=== PATIENT | female | born 1965 | race Two or more races ===

== ENCOUNTER → 2016-11-29 | Outpatient (CLI) | payer BC ==
[~2016-11-29] MED LIST: ASPI-1160 PO; ASPI-986 PO; CLOP75TA2 PO; CLOP75TA33 PO; COR25 PO; ISOS30TA PO; ISOS30TA6 PO; LIP40 PO; LISI-186 PO; SIMV40TA5 PO
[2016-11-29 13:54] LABS: CLARITY URINE CLOUDY (CLEAR); COLOR URINE YELLOW (YELLOW); GLUCOSE URINE NEGATIVE (NEGATIVE); KETONES URINE TRACE (NEGATIVE); LEUKOCYTE ESTERASE URINE 3+ (NEGATIVE); NITRITE URINE NEGATIVE (NEGATIVE); OCCULT BLOOD URINE NEGATIVE (NEGATIVE); PH URINE 7.5 (4.5-8.0); PROTEIN URINE NEGATIVE (NEGATIVE); SPECIFIC GRAVITY URINE 1.022 (1.005-1.030)
[2016-11-29 13:55] LABS: EOSINOPHILS % 6.2 % (0.0-5.0); HEMATOCRIT. 39.9 % (36.0-48.0); HEMOGLOBIN. 13.4 g/dL (12.0-16.0); LYMPHOCYTES % 37.4 % (20.0-50.0); MEAN CORPUSCULAR HEMOGLOBIN 29.9 pg (28.0-32.0); MEAN CORPUSCULAR VOLUME 88.7 fL (81.0-99.0); MEAN PLATELET VOLUME 8.4 fl (7.4-10.4); MONOCYTES % 5.6 % (2.0-8.0); NEUTROPHILS % 49.8 % (40.0-76.0); PLATELET 167 x1000/uL (130-400)
[2016-11-29 14:17] LABS: CARBON DIOXIDE 32 mEq/L (21-32); CHLORIDE 105 mEq/L (98-107)
[2016-11-29 14:30] LABS: HDL CHOLESTEROL 71 mg/dL (40-59); LDL CHOLESTEROL 155 mg/dL (5-100)
== END | disposition home or self-care (01) ==
LOC: LAB 13:25
PROVIDERS: ATTEND Internal Medicine
DX: I25.10 Atherosclerotic heart disease of native coronary artery without angina pectoris (principal); I10 Essential (primary) hypertension; E78.5 Hyperlipidemia, unspecified; R53.83 Other fatigue; R53.1 Weakness
CPT/HCPCS: 36415; 80053; 80061; 81001; 82306; 83036; 84443; 85025

== ENCOUNTER → 2017-01-25 | Outpatient (CLI) | payer BC ==
[2017-01-25 11:24] LABS: CLARITY URINE CLEAR (CLEAR); COLOR URINE YELLOW (YELLOW); GLUCOSE URINE NEGATIVE (NEGATIVE); KETONES URINE NEGATIVE (NEGATIVE); LEUKOCYTE ESTERASE URINE 2+ (NEGATIVE); NITRITE URINE NEGATIVE (NEGATIVE); OCCULT BLOOD URINE NEGATIVE (NEGATIVE); PROTEIN URINE NEGATIVE (NEGATIVE); SPECIFIC GRAVITY URINE 1.021 (1.005-1.030); UROBILINOGEN URINE 0.2 E.U./dL (0.2-1.0)
[2017-01-25 11:59] LABS: CARBON DIOXIDE 29 mEq/L (21-32); CHLORIDE 106 mEq/L (98-107); HDL CHOLESTEROL 65 mg/dL (40-59); LDL CHOLESTEROL 128 mg/dL (5-100)
== END | disposition home or self-care (01) ==
LOC: LAB 10:55
PROVIDERS: ATTEND Internal Medicine
DX: I10 Essential (primary) hypertension (principal); I25.10 Atherosclerotic heart disease of native coronary artery without angina pectoris; N39.0 Urinary tract infection, site not specified
CPT/HCPCS: 36415; 80048; 80061; 81001; 83036; 85651; 87086

== ENCOUNTER 2017-03-11 20:55 | Inpatient (IN) | payer BC, MEDICAID ==
[~2017-03-11] VITALS: Ht 162.6 cm; Wt 66.7 kg
[~2017-03-11 20:55] MED LIST changes: +CLOP75TA16 PO; -CLOP75TA2 PO
[2017-03-11] MEDS ORDERED: ASPIRIN 81MG TABLET PO ONE (22:30)
[2017-03-11] MEDS: NITROGLYCERIN 0.4MG TABLET SL SL PRN ×2 (22:33→22:42)
[2017-03-11 23:00] LABS: BASOPHILS % 0.7 % (0.0-2.0); EOSINOPHILS % 8.3 % (0.0-5.0); HEMATOCRIT. 36.7 % (36.0-48.0); HEMOGLOBIN. 12.1 g/dL (12.0-16.0); LYMPHOCYTES % 36.2 % (20.0-50.0); MEAN CORPUSCULAR HEMOGLOBIN 29.3 pg (28.0-32.0); MEAN CORPUSCULAR VOLUME 88.6 fL (81.0-99.0); MEAN PLATELET VOLUME 9.7 fl (7.4-10.4); MONOCYTES % 5.9 % (2.0-8.0); NEUTROPHILS % 48.9 % (40.0-76.0); PLATELET 163 x1000/uL (130-400); RED BLOOD CELL COUNT 4.14 mill/uL (4.2-5.4); RED CELL DISTRIBUTION WIDTH 14.3 % (11.6-14.6)
[2017-03-11 23:07] LABS: INR 1.1
[2017-03-11 23:17] LABS: CARBON DIOXIDE 31 mEq/L (21-32); CHLORIDE 107 mEq/L (98-107); TROPONIN I < 0.02 ng/mL (0.00-0.04)
[2017-03-12] MEDS ORDERED: SODIUM CHLORIDE 0.9% 1,000 ML IV SCH (00:24)
[2017-03-12] MEDS ORDERED: IBUPROFEN 600MG TABLET PO PRN (00:30)
[2017-03-12] MEDS ORDERED: ACETAMINOPHEN 325MG TABLET PO PRN ×2 (00:30→03:30)
[2017-03-12 02:20] VITALS: BP 131/77
[2017-03-12] MEDS ORDERED: NITROGLYCERIN 0.4MG TABLET SL SL PRN (03:30)
[2017-03-12] MEDS ORDERED: LORAZEPAM 0.5MG TABLET PO PRN (03:30)
[2017-03-12] MEDS ORDERED: MAGNESIUM/ALUMINUM HYDROXIDE/SIMETHICONE 30ML UDC PO PRN (03:30)
[2017-03-12] MEDS ORDERED: ONDANSETRON HCL 4MG/2ML VIAL IV PRN (03:30)
[2017-03-12] MEDS ORDERED: IPRATROPIUM/ALBUTEROL 0.5-3(2.5)MG/3ML NEB INH PRN (03:30)
[2017-03-12 04:00] VITALS: BP 130/70
[2017-03-12] MEDS ORDERED: MORPHINE SULFATE 4 MG/ML CPJ (NOT FOR IM USE) IV PRN (04:45)
[2017-03-12 08:00] VITALS: BP 128/80
[2017-03-12] MEDS: ENOXAPARIN 40MG/0.4ML SYR SUBCUT SCH (09:00)
[2017-03-12] MEDS ORDERED: MEDICATION NOT ON FORMULARY EA (Simvastatin 40 MG) PO SCH (09:00)
[2017-03-12 09:01] LABS: EOSINOPHILS % 10.7 % (0.0-5.0); HEMATOCRIT. 36.6 % (36.0-48.0); HEMOGLOBIN. 12.5 g/dL (12.0-16.0); LYMPHOCYTES % 42.9 % (20.0-50.0); MEAN CORPUSCULAR HEMOGLOBIN 30.1 pg (28.0-32.0); MEAN CORPUSCULAR VOLUME 87.7 fL (81.0-99.0); MEAN PLATELET VOLUME 9.6 fl (7.4-10.4); NEUTROPHILS % 38.4 % (40.0-76.0); PLATELET 147 x1000/uL (130-400); RED BLOOD CELL COUNT 4.17 mill/uL (4.2-5.4); RED CELL DISTRIBUTION WIDTH 14.1 % (11.6-14.6)
[2017-03-12] MEDS: FAMOTIDINE 20MG TABLET PO SCH (09:10)
[2017-03-12] MEDS: CARVEDILOL 25MG TABLET PO SCH ×2 (09:11→20:42)
[2017-03-12] MEDS: ASPIRIN 81MG TABLET PO SCH (09:11)
[2017-03-12] MEDS: ISOSORBIDE MONONITRATE 30MG TABLET SR 24HR PO SCH (09:11)
[2017-03-12] MEDS: LISINOPRIL 5MG TABLET PO SCH (09:11)
[2017-03-12 09:13] LABS: CARBON DIOXIDE 28 mEq/L (21-32); CHLORIDE 107 mEq/L (98-107); CREATINE KINASE 78 IU/L (26-192); HDL CHOLESTEROL 61 mg/dL (40-59); LDL CHOLESTEROL 82 mg/dL (5-100); T4 FREE 1.24 ng/dL (0.76-1.46); TROPONIN I < 0.02 ng/mL (0.00-0.04)
[2017-03-12 11:15] LABS: TRIOIODOTHYRONINE TOTAL 1.04 ng/ml (0.60-1.81)
[2017-03-12 11:26] LABS: HEPATITIS B SURFACE ANTIGEN NEGATIVE
[2017-03-12 11:54] LABS: HEPATITIS B CORE AB IGM NEGATIVE
[2017-03-12 12:00] VITALS: BP 99/57
[2017-03-12 16:00] VITALS: BP 107/66
[2017-03-12 18:53] LABS: CLARITY URINE CLEAR (CLEAR); COLOR URINE YELLOW (YELLOW); GLUCOSE URINE NEGATIVE (NEGATIVE); KETONES URINE NEGATIVE (NEGATIVE); LEUKOCYTE ESTERASE URINE 2+ (NEGATIVE); NITRITE URINE NEGATIVE (NEGATIVE); OCCULT BLOOD URINE NEGATIVE (NEGATIVE); PROTEIN URINE NEGATIVE (NEGATIVE); SPECIFIC GRAVITY URINE 1.007 (1.005-1.030); UROBILINOGEN URINE 0.2 E.U./dL (0.2-1.0)
[2017-03-12 20:00] VITALS: BP 112/67
[2017-03-12 20:41] LABS: CREATINE KINASE 84 IU/L (26-192); CREATINE KINASE MB FRACTION 1.5 ng/mL (0.5-3.6); TROPONIN I < 0.02 ng/mL (0.00-0.04)
[2017-03-12] MEDS ORDERED: ATORVASTATIN CALCIUM 20MG TABLET PO SCH (21:00)
[2017-03-13 01:01] VITALS: BP 94/44
[2017-03-13 06:56] LABS: BASOPHILS % 1.2 % (0.0-2.0); EOSINOPHILS % 9.6 % (0.0-5.0); HEMATOCRIT. 35.7 % (36.0-48.0); HEMOGLOBIN. 12.1 g/dL (12.0-16.0); LYMPHOCYTES % 35.5 % (20.0-50.0); MEAN CORPUSCULAR HEMOGLOBIN 29.7 pg (28.0-32.0); MEAN CORPUSCULAR VOLUME 87.9 fL (81.0-99.0); MEAN PLATELET VOLUME 9.3 fl (7.4-10.4); MONOCYTES % 7.3 % (2.0-8.0); NEUTROPHILS % 46.4 % (40.0-76.0); PLATELET 136 x1000/uL (130-400); RED BLOOD CELL COUNT 4.07 mill/uL (4.2-5.4); RED CELL DISTRIBUTION WIDTH 13.7 % (11.6-14.6)
[2017-03-13 08:00] VITALS: BP 148/85
[2017-03-13 08:09] LABS: CARBON DIOXIDE 28 mEq/L (21-32); CHLORIDE 109 mEq/L (98-107)
[2017-03-13] MEDS: ASPIRIN 81MG TABLET PO SCH (08:59)
[2017-03-13] MEDS: FAMOTIDINE 20MG TABLET PO SCH (09:00)
[2017-03-13] MEDS: ISOSORBIDE MONONITRATE 30MG TABLET SR 24HR PO SCH (09:00)
[2017-03-13] MEDS: LISINOPRIL 5MG TABLET PO SCH (09:00)
[2017-03-13] MEDS: ENOXAPARIN 40MG/0.4ML SYR SUBCUT SCH (09:01)
[2017-03-13] MEDS: CARVEDILOL 25MG TABLET PO SCH (09:01)
[2017-03-13] MEDS ORDERED: REGADENOSON 0.4 MG/5 ML IV NR (10:15)
[2017-03-13 11:46] LABS: HCG SCREEN NEGATIVE
[2017-03-13 12:00] VITALS: BP 153/83
[2017-03-13] MEDS ORDERED: REGADENOSON 0.4 MG/5 ML IV ONE (12:55)
[2017-03-13] MEDS ORDERED: METHYLPREDNISOLONE SOD SUCC 40 MG/ML VIAL IV SCH (19:20)
[2017-03-13 20:50] VITALS: BP 109/74
[2017-03-14 15:32] LABS: HEPATITIS A AB IGM NEGATIVE (NEGATIVE)
[2017-03-16 06:15] LABS: 25-HYDROXY VITAMIN D3 24 ng/mL (.)
== END 2017-03-13 21:30 | disposition home or self-care (01) | DRG 313 ==
LOC: ER 21:42 → 7WST 03-12 00:26 → ENRESERV 03-12 01:15
PROVIDERS: ADMIT Internal Medicine; ATTEND Internal Medicine
DX: R07.89 Other chest pain (principal); I25.2 Old myocardial infarction; D72.1 Eosinophilia; I11.9 Hypertensive heart disease without heart failure; I25.10 Atherosclerotic heart disease of native coronary artery without angina pectoris; E78.5 Hyperlipidemia, unspecified; J45.909 Unspecified asthma, uncomplicated; Z79.82 Long term (current) use of aspirin; Z82.49 Family history of ischemic heart disease and other diseases of the circulatory system; Z79.899 Other long term (current) drug therapy
CPT/HCPCS: 36415; 71010; 78452; 80048; 80053; 80061; 80076; 81001; 82306; 82550; 82553; 83880; 84439; 84443; 84480; 84484; 84703; 85025; 85610; 86705; 86709; 86803; 87340; 93005; 93017; 96360; 96361; 99285; A9500; J1650; J2785; J2920; J7030

== ENCOUNTER 2017-11-15 21:58 | Emergency (ER) | payer BC, MEDICAID ==
[~2017-11-15] VITALS: Ht 162.6 cm; Wt 67.0 kg
[~2017-11-15 21:58] MED LIST changes: -ASPI-986 PO; -CLOP75TA16 PO; -CLOP75TA33 PO; -ISOS30TA6 PO; -LIP40 PO
[2017-11-15] MEDS ORDERED: ONDANSETRON HCL 4MG/2ML VIAL IV STA (22:49)
[2017-11-15] MEDS ORDERED: KETOROLAC 30MG/ML VIAL IV STA (22:49)
[2017-11-15 23:15] VITALS: BP 110/68
[2017-11-15 23:41] LABS: BASOPHILS % 1.3 % (0.0-2.0); HEMATOCRIT. 37.4 % (36.0-48.0); HEMOGLOBIN. 12.6 g/dL (12.0-16.0); LYMPHOCYTES % 38.4 % (20.0-50.0); MEAN CORPUSCULAR VOLUME 89.4 fL (81.0-99.0); MEAN PLATELET VOLUME 8.6 fl (7.4-10.4); MONOCYTES % 7.4 % (2.0-8.0); NEUTROPHILS % 43.9 % (40.0-76.0); PLATELET 183 x1000/uL (130-400); RED BLOOD CELL COUNT 4.18 mill/uL (4.2-5.4); RED CELL DISTRIBUTION WIDTH 13.3 % (11.6-14.6)
[2017-11-15 23:45] LABS: CHLORIDE 103 mEq/L (98-107)
[2017-11-15 23:58] LABS: CLARITY URINE CLOUDY (CLEAR); COLOR URINE YELLOW (YELLOW); KETONES URINE NEGATIVE (NEGATIVE); LEUKOCYTE ESTERASE URINE 3+ (NEGATIVE); NITRITE URINE NEGATIVE (NEGATIVE); OCCULT BLOOD URINE NEGATIVE (NEGATIVE); PROTEIN URINE NEGATIVE (NEGATIVE); SPECIFIC GRAVITY URINE 1.011 (1.005-1.030); UROBILINOGEN URINE 0.2 E.U./dL (0.2-1.0)
== END 2017-11-16 01:45 | disposition home or self-care (01) ==
LOC: ER 11-16 00:14
DX: N39.0 Urinary tract infection, site not specified (principal); I25.2 Old myocardial infarction; Z79.82 Long term (current) use of aspirin; Z95.5 Presence of coronary angioplasty implant and graft; I10 Essential (primary) hypertension
CPT/HCPCS: 36415; 71045; 80053; 81003; 83690; 85025; 87086; 93005; 99285; Z7610; J1885; J2405

== ENCOUNTER 2017-12-08 20:20 | Emergency (ER) | payer BC, MEDICAID ==
[~2017-12-08] VITALS: Ht 162.6 cm; Wt 65.0 kg
[2017-12-08 21:51] LABS: CLARITY URINE CLEAR (CLEAR); COLOR URINE YELLOW (YELLOW); KETONES URINE NEGATIVE (NEGATIVE); LEUKOCYTE ESTERASE URINE 1+ (NEGATIVE); NITRITE URINE NEGATIVE (NEGATIVE); OCCULT BLOOD URINE NEGATIVE (NEGATIVE); PROTEIN URINE NEGATIVE (NEGATIVE); SPECIFIC GRAVITY URINE 1.003 (1.005-1.030); UROBILINOGEN URINE 0.2 E.U./dL (0.2-1.0)
[2017-12-08 22:52] LABS: BASOPHILS % 0.9 % (0.0-2.0); EOSINOPHILS % 8.4 % (0.0-5.0); HEMATOCRIT. 37.7 % (36.0-48.0); HEMOGLOBIN. 12.7 g/dL (12.0-16.0); LYMPHOCYTES % 38.4 % (20.0-50.0); MEAN CORPUSCULAR HEMOGLOBIN 29.9 pg (28.0-32.0); MEAN CORPUSCULAR VOLUME 88.8 fL (81.0-99.0); MEAN PLATELET VOLUME 8.3 fl (7.4-10.4); NEUTROPHILS % 45.3 % (40.0-76.0); PLATELET 162 x1000/uL (130-400); RED BLOOD CELL COUNT 4.24 mill/uL (4.2-5.4); RED CELL DISTRIBUTION WIDTH 14.3 % (11.6-14.6)
[2017-12-08 22:54] LABS: CHLORIDE 105 mEq/L (98-107)
[2017-12-08 23:40] VITALS: BP 151/81
== END 2017-12-09 00:59 | disposition home or self-care (01) ==
LOC: ER 20:20
DX: H93.11 Tinnitus, right ear (principal); N39.0 Urinary tract infection, site not specified; I10 Essential (primary) hypertension; Z79.82 Long term (current) use of aspirin; Z98.51 Tubal ligation status
CPT/HCPCS: 36415; 80053; 81003; 85025; 99284

== ENCOUNTER → 2018-01-03 | Outpatient (CLI) | payer BC | END | disposition home or self-care (01) | LOC: MAMMO 08:20 | PROVIDERS: ATTEND Internal Medicine | DX: Z12.31 Encounter for screening mammogram for malignant neoplasm of breast (principal); R10.32 Left lower quadrant pain; I10 Essential (primary) hypertension | CPT/HCPCS: 76700; 76856; 77067 ==

== ENCOUNTER 2018-01-05 22:48 | Inpatient (IN) | payer BC, MEDICAID ==
[~2018-01-05] VITALS: Ht 162.6 cm; Wt 66.2 kg
[2018-01-05] MEDS ORDERED: NITROGLYCERIN 0.4MG TABLET SL SL PRN (23:45)
[2018-01-05] MEDS ORDERED: ASPIRIN 81MG TABLET PO ONE (23:45)
[2018-01-06 00:35] LABS: BASOPHILS % 0.8 % (0.0-2.0); EOSINOPHILS % 7.5 % (0.0-5.0); HEMATOCRIT. 39.3 % (36.0-48.0); HEMOGLOBIN. 13.2 g/dL (12.0-16.0); LYMPHOCYTES % 43.7 % (20.0-50.0); MEAN CORPUSCULAR HEMOGLOBIN 29.9 pg (28.0-32.0); MEAN CORPUSCULAR VOLUME 89.2 fL (81.0-99.0); MEAN PLATELET VOLUME 8.6 fl (7.4-10.4); MONOCYTES % 7.1 % (2.0-8.0); NEUTROPHILS % 40.9 % (40.0-76.0); PLATELET 166 x1000/uL (130-400); RED CELL DISTRIBUTION WIDTH 14.2 % (11.6-14.6)
[2018-01-06 00:36] LABS: CHLORIDE 103 mEq/L (98-107)
[2018-01-06 00:44] LABS: CLARITY URINE CLEAR (CLEAR); COLOR URINE YELLOW (YELLOW); KETONES URINE NEGATIVE (NEGATIVE); LEUKOCYTE ESTERASE URINE 2+ (NEGATIVE); NITRITE URINE NEGATIVE (NEGATIVE); OCCULT BLOOD URINE NEGATIVE (NEGATIVE); PH URINE 7.5 (4.5-8.0); PROTEIN URINE NEGATIVE (NEGATIVE); SPECIFIC GRAVITY URINE 1.004 (1.005-1.030); UROBILINOGEN URINE 0.2 E.U./dL (0.2-1.0)
[2018-01-06 00:47] LABS: INR 1.1; PARTIAL THROMBOPLASTIN TIME 27.3 sec (23.4-31.0); PROTHROMBIN TIME 11.4 sec (9.4-11.6)
[2018-01-06 10:00] VITALS: BP 120/79
[2018-01-06] MEDS ORDERED: AMLODIPINE 5MG TABLET PO NR (10:30)
[2018-01-06 11:45] VITALS: BP 116/81
[2018-01-06] MEDS ORDERED: REGADENOSON 0.4 MG/5 ML IV ONE (12:30)
[2018-01-06] MEDS ORDERED: CLOPIDOGREL 75MG TABLET PO NR (12:30)
[2018-01-06] MEDS ORDERED: ASPIRIN 81MG EC TABLET PO SCH (13:00)
[2018-01-06] MEDS ORDERED: ISOSORBIDE MONONITRATE PO SCH (13:15)
[2018-01-06] MEDS ORDERED: ASPIRIN 81MG EC TABLET PO NR (14:00)
[2018-01-06] MEDS: ISOSORBIDE MONONITRATE 30MG TABLET SR 24HR PO SCH (15:18)
[2018-01-06] MEDS: CARVEDILOL 25MG TABLET PO SCH ×2 (15:18→21:00)
[2018-01-06 16:03] VITALS: BP 124/78
[2018-01-06 20:00] VITALS: BP 103/61
[2018-01-06 20:43] LABS: CREATINE KINASE 63 IU/L (26-192)
[2018-01-06 20:44] LABS: CREATINE KINASE MB FRACTION 0.5 ng/mL (0.5-3.6)
[2018-01-06] MEDS: ATORVASTATIN CALCIUM 10MG TABLET PO SCH (20:50)
[2018-01-07] VITALS: BP 96/48
[2018-01-07 04:00] VITALS: BP 92/48
[2018-01-07 06:09] LABS: HEMATOCRIT. 38.2 % (36.0-48.0); HEMOGLOBIN. 12.7 g/dL (12.0-16.0); MEAN CORPUSCULAR HEMOGLOBIN 29.9 pg (28.0-32.0); MEAN CORPUSCULAR VOLUME 89.6 fL (81.0-99.0); PLATELET 160 x1000/uL (130-400); RED BLOOD CELL COUNT 4.26 mill/uL (4.2-5.4); RED CELL DISTRIBUTION WIDTH 14.2 % (11.6-14.6)
[2018-01-07] MEDS: ASPIRIN 81MG TABLET PO SCH (08:11)
[2018-01-07] MEDS: CLOPIDOGREL 75MG TABLET PO SCH (08:11)
[2018-01-07] MEDS: AMLODIPINE 5MG TABLET PO SCH (08:13)
[2018-01-07 08:19] VITALS: BP 97/68
[2018-01-07] MEDS: CARVEDILOL 25MG TABLET PO SCH ×2 (08:21→20:17)
[2018-01-07] MEDS: ISOSORBIDE MONONITRATE 30MG TABLET SR 24HR PO SCH (08:21)
[2018-01-07 08:43] LABS: CHLORIDE 108 mEq/L (98-107)
[2018-01-07 08:53] LABS: T4 FREE 1.19 ng/dL (0.76-1.46)
[2018-01-07 08:59] LABS: LDL CHOLESTEROL 135 mg/dL (5-100)
[2018-01-07 09:41] LABS: HDL CHOLESTEROL 57 mg/dL (40-59)
[2018-01-07 11:01] LABS: PLATELET ESTIMATE NORMAL
[2018-01-07 12:30] VITALS: BP 114/69
[2018-01-07 16:30] VITALS: BP 127/43
[2018-01-07] MEDS: ATORVASTATIN CALCIUM 10MG TABLET PO SCH (20:20)
[2018-01-08] VITALS: BP 103/65
[2018-01-08 04:00] VITALS: BP 96/58
[2018-01-08 06:33] LABS: BASOPHILS % 1.2 % (0.0-2.0); EOSINOPHILS % 10.3 % (0.0-5.0); HEMATOCRIT. 40.4 % (36.0-48.0); HEMOGLOBIN. 13.5 g/dL (12.0-16.0); MEAN CORPUSCULAR HEMOGLOBIN 29.6 pg (28.0-32.0); MEAN PLATELET VOLUME 8.8 fl (7.4-10.4); MONOCYTES % 8.7 % (2.0-8.0); NEUTROPHILS % 32.8 % (40.0-76.0); PLATELET 168 x1000/uL (130-400); RED BLOOD CELL COUNT 4.54 mill/uL (4.2-5.4); RED CELL DISTRIBUTION WIDTH 13.9 % (11.6-14.6)
[2018-01-08 06:39] LABS: CHLORIDE 108 mEq/L (98-107)
[2018-01-08 08:00] VITALS: BP 125/88
[2018-01-08] MEDS ORDERED: REGADENOSON 0.4 MG/5 ML IV ONE (10:35)
[2018-01-08 11:53] VITALS: BP 141/86
[2018-01-08] MEDS: CARVEDILOL 25MG TABLET PO SCH (12:30)
[2018-01-08] MEDS: CLOPIDOGREL 75MG TABLET PO SCH (12:30)
[2018-01-08] MEDS: ISOSORBIDE MONONITRATE 30MG TABLET SR 24HR PO SCH (12:31)
[2018-01-08] MEDS: AMLODIPINE 5MG TABLET PO SCH (12:32)
[2018-01-08] MEDS: ASPIRIN 81MG TABLET PO SCH (12:35)
[2018-01-08 14:34] VITALS: BP 141/86
== END 2018-01-08 15:11 | disposition home or self-care (01) | DRG 303 ==
LOC: ER 22:48 → 6WST 01-06 02:39 → EDBEDREQTM 01-06 02:48 → EDBEDREQ 01-06 02:48 → ENRESERV 01-06 07:00 → 6WST 01-06 08:54
PROVIDERS: ADMIT Internal Medicine; ATTEND Internal Medicine
DX: I25.110 Atherosclerotic heart disease of native coronary artery with unstable angina pectoris (principal); I11.9 Hypertensive heart disease without heart failure; F41.9 Anxiety disorder, unspecified; E78.5 Hyperlipidemia, unspecified; I25.2 Old myocardial infarction; J45.909 Unspecified asthma, uncomplicated; Z79.02 Long term (current) use of antithrombotics/antiplatelets; Z79.899 Other long term (current) drug therapy; Z95.5 Presence of coronary angioplasty implant and graft; Z79.82 Long term (current) use of aspirin
CPT/HCPCS: 36415; 71045; 78452; 80048; 80053; 80061; 80076; 81003; 82550; 82553; 83880; 84439; 84443; 84481; 84484; 85007; 85025; 85027; 85610; 85730; 87086; 93005; 93017; 93306; 99285; A9500; J2785

== ENCOUNTER → 2018-02-08 | Outpatient (CLI) | payer BC, MEDICAID ==
[2018-02-08 10:05] LABS: BASOPHILS % 1.2 % (0.0-2.0); EOSINOPHILS % 8.6 % (0.0-5.0); HEMATOCRIT. 39.9 % (36.0-48.0); HEMOGLOBIN. 13.5 g/dL (12.0-16.0); LYMPHOCYTES % 37.7 % (20.0-50.0); MEAN CORPUSCULAR VOLUME 88.7 fL (81.0-99.0); MEAN PLATELET VOLUME 8.7 fl (7.4-10.4); MONOCYTES % 6.2 % (2.0-8.0); NEUTROPHILS % 46.3 % (40.0-76.0); PLATELET 181 x1000/uL (130-400); RED CELL DISTRIBUTION WIDTH 13.7 % (11.6-14.6)
[2018-02-08 10:13] LABS: CHLORIDE 105 mEq/L (98-107)
[2018-02-08 10:51] LABS: LDL CHOLESTEROL 78 mg/dL (5-100)
[2018-02-08 11:02] LABS: HDL CHOLESTEROL 55 mg/dL (40-59)
[2018-02-12 15:52] LABS: CLARITY URINE CLEAR (CLEAR); COLOR URINE YELLOW (YELLOW); KETONES URINE NEGATIVE (NEGATIVE); LEUKOCYTE ESTERASE URINE 2+ (NEGATIVE); NITRITE URINE NEGATIVE (NEGATIVE); OCCULT BLOOD URINE NEGATIVE (NEGATIVE); PROTEIN URINE NEGATIVE (NEGATIVE); SPECIFIC GRAVITY URINE 1.006 (1.005-1.030); UROBILINOGEN URINE 0.2 E.U./dL (0.2-1.0)
== END | disposition home or self-care (01) ==
LOC: LAB 09:12
PROVIDERS: ATTEND Specialist
DX: I11.9 Hypertensive heart disease without heart failure (principal); E78.2 Mixed hyperlipidemia; R10.9 Unspecified abdominal pain; N39.0 Urinary tract infection, site not specified; R07.9 Chest pain, unspecified
CPT/HCPCS: 36415; 80053; 80061; 84443; 85025; 85651

== ENCOUNTER → 2018-03-06 | Outpatient (CLI) | payer BC, MEDICAID ==
[~2018-03-06] VITALS: Ht 162.6 cm; Wt 65.3 kg
[~2018-03-06] MED LIST changes: +IOHEXOL-350 100 ML BOTTLE ONE; +METOPROLOL TARTRATE 5MG/5ML VIAL IV ONE; +NITROGLYCERIN SPRAY/4.9GM CAN TL SCH
== END | disposition home or self-care (01) ==
LOC: CT 07:44
PROVIDERS: ATTEND Specialist
DX: I25.10 Atherosclerotic heart disease of native coronary artery without angina pectoris (principal)
CPT/HCPCS: 75571; J3490; Q9967

== ENCOUNTER → 2019-04-29 | Outpatient (CLI) | payer BC, MEDICAID ==
[~2019-04-29] MED LIST changes: -IOHEXOL-350 100 ML BOTTLE ONE; -METOPROLOL TARTRATE 5MG/5ML VIAL IV ONE; -NITROGLYCERIN SPRAY/4.9GM CAN TL SCH
[2019-04-29 13:00] LABS: BASOPHILS % 1.2 % (0.0-2.0); EOSINOPHILS % 7.7 % (0.0-5.0); HEMATOCRIT. 38.5 % (36.0-48.0); LYMPHOCYTES % 36.8 % (20.0-50.0); MEAN CORPUSCULAR HEMOGLOBIN 30.2 pg (28.0-32.0); MEAN CORPUSCULAR VOLUME 89.4 fL (81.0-99.0); MEAN PLATELET VOLUME 8.4 fl (7.4-10.4); MONOCYTES % 6.1 % (2.0-8.0); NEUTROPHILS % 48.2 % (40.0-76.0); PLATELET 166 x1000/uL (130-400); RED CELL DISTRIBUTION WIDTH 13.8 % (11.6-14.6)
[2019-04-29 14:02] LABS: CHLORIDE 108 mEq/L (98-107)
[2019-04-29 14:12] LABS: LDL CHOLESTEROL 110 mg/dL (5-100)
[2019-04-29 14:14] LABS: HDL CHOLESTEROL 53 mg/dL (40-59)
[2019-04-29 14:15] LABS: T4 FREE 1.27 ng/dL (0.76-1.46)
== END | disposition home or self-care (01) ==
LOC: LAB 12:19
PROVIDERS: ATTEND Specialist
DX: E78.00 Pure hypercholesterolemia, unspecified (principal); I10 Essential (primary) hypertension; E78.49 Other hyperlipidemia; R07.9 Chest pain, unspecified; I25.10 Atherosclerotic heart disease of native coronary artery without angina pectoris
CPT/HCPCS: 36415; 80061; 82306; 83036; 84439; 84443; 84480

== ENCOUNTER 2019-06-25 08:29 | Emergency (ER) | payer BC, MEDICAID ==
[~2019-06-25] VITALS: Ht 160 cm; Wt 68.0 kg
[~2019-06-25 08:29] MED LIST changes: +SIMV-46 PO; -SIMV40TA5 PO
[2019-06-25 12:23] VITALS: BP 123/72
== END 2019-06-25 12:26 | disposition home or self-care (01) ==
LOC: ER 08:29
DX: I16.0 Hypertensive urgency (principal); R42 Dizziness and giddiness; I10 Essential (primary) hypertension; I25.2 Old myocardial infarction; Z79.899 Other long term (current) drug therapy
CPT/HCPCS: 99281

== ENCOUNTER → 2019-07-18 | Outpatient (CLI) | payer BC, MEDICAID ==
[2019-07-18 10:52] LABS: BASOPHILS % 1.1 % (0.0-2.0); EOSINOPHILS % 7.4 % (0.0-5.0); HEMATOCRIT. 37.9 % (36.0-48.0); HEMOGLOBIN. 12.7 g/dL (12.0-16.0); LYMPHOCYTES % 34.5 % (20.0-50.0); MEAN CORPUSCULAR HEMOGLOBIN 30.1 pg (28.0-32.0); MEAN CORPUSCULAR VOLUME 89.7 fL (81.0-99.0); MEAN PLATELET VOLUME 8.3 fl (7.4-10.4); PLATELET 184 x1000/uL (130-400); RED BLOOD CELL COUNT 4.22 mill/uL (4.2-5.4); RED CELL DISTRIBUTION WIDTH 14.2 % (11.6-14.6)
[2019-07-18 11:10] LABS: CHLORIDE 107 mEq/L (98-107)
== END | disposition home or self-care (01) ==
LOC: LAB 10:15
PROVIDERS: ATTEND Specialist
DX: E78.2 Mixed hyperlipidemia (principal); D64.9 Anemia, unspecified; E55.9 Vitamin D deficiency, unspecified
CPT/HCPCS: 36415; 80053; 83036; 84443; 85025

== ENCOUNTER 2019-10-19 22:52 | Emergency (ER) | payer BC ==
[~2019-10-19] VITALS: Ht 170.2 cm; Wt 65.0 kg
[2019-10-19] MEDS ORDERED: ACETAMINOPHEN 500MG TABLET PO ONE (23:30)
[2019-10-19 23:45] LABS: BASOPHILS % 1.3 % (0.0-2.0); EOSINOPHILS % 7.4 % (0.0-5.0); HEMATOCRIT. 37.8 % (36.0-48.0); HEMOGLOBIN. 12.5 g/dL (12.0-16.0); LYMPHOCYTES % 35.9 % (20.0-50.0); MEAN CORPUSCULAR HEMOGLOBIN 29.8 pg (28.0-32.0); MEAN CORPUSCULAR VOLUME 89.8 fL (81.0-99.0); MEAN PLATELET VOLUME 7.9 fl (7.4-10.4); MONOCYTES % 8.6 % (2.0-8.0); NEUTROPHILS % 46.8 % (40.0-76.0); PLATELET 171 x1000/uL (130-400); RED BLOOD CELL COUNT 4.21 mill/uL (4.2-5.4); RED CELL DISTRIBUTION WIDTH 13.9 % (11.6-14.6)
[2019-10-20 00:04] LABS: CHLORIDE 99 mEq/L (98-107)
[2019-10-20 01:15] VITALS: BP 118/68
== END 2019-10-20 01:30 | disposition home or self-care (01) ==
LOC: ER 22:52
DX: R07.89 Other chest pain (principal); R51 Headache; I10 Essential (primary) hypertension; I25.2 Old myocardial infarction; Z98.890 Other specified postprocedural states; Z79.82 Long term (current) use of aspirin; Z79.899 Other long term (current) drug therapy
CPT/HCPCS: 36415; 71045; 80053; 83880; 84484; 85025; 93005; 99285

== ENCOUNTER → 2019-10-23 | Outpatient (CLI) | payer BC ==
[2019-10-23 12:14] LABS: BASOPHILS % 1.2 % (0.0-2.0); EOSINOPHILS % 7.8 % (0.0-5.0); LYMPHOCYTES % 35.1 % (20.0-50.0); MEAN CORPUSCULAR HEMOGLOBIN 30.4 pg (28.0-32.0); MEAN CORPUSCULAR VOLUME 90.9 fL (81.0-99.0); MONOCYTES % 6.4 % (2.0-8.0); NEUTROPHILS % 49.5 % (40.0-76.0); PLATELET 194 x1000/uL (130-400); RED BLOOD CELL COUNT 4.63 mill/uL (4.2-5.4); RED CELL DISTRIBUTION WIDTH 14.3 % (11.6-14.6)
[2019-10-23 12:20] LABS: CHLORIDE 105 mEq/L (98-107)
[2019-10-23 12:27] LABS: LDL CHOLESTEROL 112 mg/dL (5-100)
[2019-10-23 12:29] LABS: HDL CHOLESTEROL 69 mg/dL (40-59)
== END | disposition home or self-care (01) ==
LOC: LAB 11:36
PROVIDERS: ATTEND Specialist
DX: E78.2 Mixed hyperlipidemia (principal)
CPT/HCPCS: 36415; 80053; 80061; 82306; 83036; 84443; 85025

== ENCOUNTER → 2019-12-18 | Outpatient (CLI) | payer BC ==
[2019-12-18 11:07] LABS: CLARITY URINE CLEAR (CLEAR); COLOR URINE YELLOW (YELLOW); KETONES URINE NEGATIVE (NEGATIVE); LEUKOCYTE ESTERASE URINE 3+ (NEGATIVE); NITRITE URINE NEGATIVE (NEGATIVE); OCCULT BLOOD URINE NEGATIVE (NEGATIVE); PH URINE >=9.0 (4.5-8.0); PROTEIN URINE NEGATIVE (NEGATIVE); SPECIFIC GRAVITY URINE 1.014 (1.005-1.030); UROBILINOGEN URINE 0.2 E.U./dL (0.2-1.0)
[2019-12-18 11:14] LABS: BASOPHILS % 1.1 % (0.0-2.0); EOSINOPHILS % 6.5 % (0.0-5.0); HEMOGLOBIN. 14.4 g/dL (12.0-16.0); LYMPHOCYTES % 24.1 % (20.0-50.0); MEAN CORPUSCULAR HEMOGLOBIN 31.7 pg (28.0-32.0); MEAN PLATELET VOLUME 8.4 fl (7.4-10.4); NEUTROPHILS % 63.3 % (40.0-76.0); PLATELET 196 x1000/uL (130-400); RED BLOOD CELL COUNT 4.55 mill/uL (4.2-5.4); RED CELL DISTRIBUTION WIDTH 13.8 % (11.6-14.6)
[2019-12-18 11:34] LABS: CHLORIDE 107 mEq/L (98-107)
[2019-12-18 11:41] LABS: LDL CHOLESTEROL 80 mg/dL (5-100)
[2019-12-18 11:42] LABS: HDL CHOLESTEROL 67 mg/dL (40-59)
== END | disposition home or self-care (01) ==
LOC: LAB 09:58
PROVIDERS: ATTEND Internal Medicine
DX: R10.9 Unspecified abdominal pain (principal); I25.10 Atherosclerotic heart disease of native coronary artery without angina pectoris; R53.83 Other fatigue; E78.2 Mixed hyperlipidemia; R03.0 Elevated blood-pressure reading, without diagnosis of hypertension
CPT/HCPCS: 36415; 80053; 80061; 81003; 82306; 83036; 84443; 85025

== ENCOUNTER → 2019-12-18 | Outpatient (CLI) | payer BC ==
[2019-12-18 11:43] LABS: T4 FREE 1.12 ng/dL (0.76-1.46)
== END | disposition home or self-care (01) ==
LOC: LAB 10:01
PROVIDERS: ATTEND Specialist
DX: E78.2 Mixed hyperlipidemia (principal); E55.9 Vitamin D deficiency, unspecified; D64.9 Anemia, unspecified
CPT/HCPCS: 36415; 84439; 84481

== ENCOUNTER 2020-02-05 10:28 | Inpatient (IN) | payer BC ==
[~2020-02-05] VITALS: Ht 162.6 cm; Wt 71.2 kg
[2020-02-05] MEDS ORDERED: SODIUM CHLORIDE 0.9% 1,000 ML IV ONE (10:54)
[2020-02-05 11:27] LABS: BASOPHILS % 1.1 % (0.0-2.0); EOSINOPHILS % 11.4 % (0.0-5.0); HEMATOCRIT. 36.3 % (36.0-48.0); HEMOGLOBIN. 12.3 g/dL (12.0-16.0); LYMPHOCYTES % 30.2 % (20.0-50.0); MEAN CORPUSCULAR HEMOGLOBIN 30.5 pg (28.0-32.0); MEAN CORPUSCULAR VOLUME 90.1 fL (81.0-99.0); MEAN PLATELET VOLUME 8.6 fl (7.4-10.4); MONOCYTES % 6.4 % (2.0-8.0); NEUTROPHILS % 50.9 % (40.0-76.0); PLATELET 172 x1000/uL (130-400); RED BLOOD CELL COUNT 4.03 mill/uL (4.2-5.4); RED CELL DISTRIBUTION WIDTH 14.2 % (11.6-14.6)
[2020-02-05 11:33] LABS: CHLORIDE 104 mEq/L (98-107)
[2020-02-05 11:36] LABS: INR 1.1; PROTHROMBIN TIME 11.3 sec (9.6-11.0)
[2020-02-05] MEDS ORDERED: ONDANSETRON HCL 4MG/2ML INJ IV PRN (14:30)
[2020-02-05] MEDS ORDERED: ACETAMINOPHEN 325MG TABLET PO PRN (14:30)
[2020-02-05 15:30] VITALS: BP 124/70
[2020-02-05 16:00] VITALS: BP 124/70
[2020-02-05] MEDS ORDERED: NEBI5TAB3 PO (17:56)
[2020-02-05 20:16] VITALS: BP 119/70
[2020-02-05] MEDS ORDERED: ATORVASTATIN CALCIUM 40MG TABLET PO SCH (21:00)
[2020-02-05] MEDS ORDERED: TRAZODONE HCL 50MG TABLET PO PRN (21:00)
[2020-02-05] MEDS: HEPARIN 5000 UNITS/ML VIAL SUBCUT SCH ×2 (22:09→22:45)
[2020-02-06] VITALS: BP 111/63
[2020-02-06 04:00] VITALS: BP 107/68
[2020-02-06 06:38] LABS: CHLORIDE 110 mEq/L (98-107)
[2020-02-06 07:06] LABS: BASOPHILS % 1.3 % (0.0-2.0); EOSINOPHILS % 14.3 % (0.0-5.0); HEMATOCRIT. 37.4 % (36.0-48.0); HEMOGLOBIN. 12.9 g/dL (12.0-16.0); LYMPHOCYTES % 40.3 % (20.0-50.0); MEAN CORPUSCULAR HEMOGLOBIN 30.7 pg (28.0-32.0); MEAN CORPUSCULAR VOLUME 89.1 fL (81.0-99.0); MONOCYTES % 9.3 % (2.0-8.0); NEUTROPHILS % 34.8 % (40.0-76.0); PLATELET 168 x1000/uL (130-400)
[2020-02-06 07:41] VITALS: BP 117/74
[2020-02-06] MEDS ORDERED: NEBIVOLOL HCL 5 MG TABLET PO SCH (09:00)
[2020-02-06] MEDS ORDERED: ASPIRIN 81MG TABLET PO SCH (09:00)
[2020-02-06 11:31] VITALS: BP 131/80
[2020-02-06] MEDS ORDERED: LIP40 PO (12:42)
[2020-02-06 14:31] VITALS: BP 131/80
== END 2020-02-06 15:15 | disposition home or self-care (01) | DRG 310 ==
LOC: ER 10:28 → EDBEDREQTM 11:47 → 5WST 13:35 → EDBEDREQTM 13:38 → EDBEDREQ 13:38 → ENRESERV 14:11 → 5WST 16:09
PROVIDERS: ADMIT Internal Medicine; ATTEND Internal Medicine
DX: R00.2 Palpitations (principal); E78.5 Hyperlipidemia, unspecified; F41.9 Anxiety disorder, unspecified; I10 Essential (primary) hypertension; I25.10 Atherosclerotic heart disease of native coronary artery without angina pectoris; I25.2 Old myocardial infarction; Z79.82 Long term (current) use of aspirin; Z79.899 Other long term (current) drug therapy; Z95.5 Presence of coronary angioplasty implant and graft
CPT/HCPCS: 36415; 71045; 80053; 80061; 83735; 83880; 84439; 84443; 84484; 85025; 93005; 93306; 99291; J1644; J7030

== ENCOUNTER → 2020-03-25 | Day surgery (SDC) | payer BC ==
[~2020-03-25] MED LIST changes: -COR25 PO; +LIP40 PO; -LISI-186 PO; +NEBI5TAB3 PO; -SIMV-46 PO
== END | disposition home or self-care (01) ==
LOC: CARD 11:27
PROVIDERS: ATTEND Specialist
DX: R00.2 Palpitations (principal)
CPT/HCPCS: 93225; 93226

== ENCOUNTER → 2021-11-08 | Outpatient (CLI) | payer BC ==
[2021-11-08 10:06] LABS: BASOPHILS % 0.9 % (0.0-2.0); EOSINOPHILS % 7.4 % (0.0-5.0); HEMOGLOBIN. 13.4 g/dL (12.0-16.0); LYMPHOCYTES % 35.4 % (20.0-50.0); MEAN CORPUSCULAR HEMOGLOBIN 29.1 pg (28.0-32.0); MEAN CORPUSCULAR VOLUME 88.7 fL (81.0-99.0); MONOCYTES % 7.5 % (2.0-8.0); NEUTROPHILS % 48.8 % (40.0-76.0); PLATELET 197 x1000/uL (130-400); RED BLOOD CELL COUNT 4.62 mill/uL (4.2-5.4); RED CELL DISTRIBUTION WIDTH 14.2 % (11.6-14.6)
[2021-11-08 10:10] LABS: CHLORIDE 109 mEq/L (98-107)
[2021-11-08 10:24] LABS: HDL CHOLESTEROL 59 mg/dL (40-59); LDL CHOLESTEROL 82 mg/dL (5-100); T4 FREE 1.15 ng/dL (0.76-1.46)
[2021-11-08 11:40] LABS: CLARITY URINE CLEAR (CLEAR); COLOR URINE YELLOW (YELLOW); KETONES URINE NEGATIVE (NEGATIVE); LEUKOCYTE ESTERASE URINE TRACE (NEGATIVE); NITRITE URINE NEGATIVE (NEGATIVE); OCCULT BLOOD URINE NEGATIVE (NEGATIVE); PROTEIN URINE NEGATIVE (NEGATIVE); SPECIFIC GRAVITY URINE 1.021 (1.005-1.030); UROBILINOGEN URINE 0.2 E.U./dL (0.2-1.0)
== END | disposition home or self-care (01) ==
LOC: LAB 09:34
PROVIDERS: ATTEND Internal Medicine
DX: Z00.00 Encounter for general adult medical examination without abnormal findings (principal); E78.5 Hyperlipidemia, unspecified; E55.9 Vitamin D deficiency, unspecified; E78.2 Mixed hyperlipidemia; E11.9 Type 2 diabetes mellitus without complications; N39.0 Urinary tract infection, site not specified
CPT/HCPCS: 36415; 80053; 80061; 81003; 82652; 83036; 84439; 84443; 84481; 85025

== ENCOUNTER 2022-01-24 14:29 | Emergency (ER) | payer BC ==
[~2022-01-24] VITALS: Ht 162.6 cm; Wt 72.0 kg
[2022-01-24 18:39] LABS: EOSINOPHILS % 6.1 % (0.0-5.0); HEMATOCRIT. 42.8 % (36.0-48.0); HEMOGLOBIN. 14.1 g/dL (12.0-16.0); LYMPHOCYTES % 34.3 % (20.0-50.0); MEAN CORPUSCULAR HEMOGLOBIN 29.2 pg (28.0-32.0); MEAN CORPUSCULAR VOLUME 88.6 fL (81.0-99.0); MEAN PLATELET VOLUME 8.8 fl (7.4-10.4); MONOCYTES % 7.9 % (2.0-8.0); NEUTROPHILS % 50.7 % (40.0-76.0); PLATELET 175 x1000/uL (130-400); RED BLOOD CELL COUNT 4.83 mill/uL (4.2-5.4); RED CELL DISTRIBUTION WIDTH 14.2 % (11.6-14.6)
[2022-01-24 18:43] LABS: CHLORIDE 103 mEq/L (98-107)
[2022-01-24 19:01] LABS: T4 FREE 1.18 ng/dL (0.76-1.46)
[2022-01-24] MEDS ORDERED: ASPIRIN 81MG TABLET PO NR (20:15)
[2022-01-24 21:19] VITALS: BP 120/68
== END 2022-01-24 21:20 | disposition home or self-care (01) ==
LOC: ER 14:29
DX: R00.2 Palpitations (principal); I10 Essential (primary) hypertension; I25.10 Atherosclerotic heart disease of native coronary artery without angina pectoris; I25.2 Old myocardial infarction; E78.00 Pure hypercholesterolemia, unspecified; Z98.61 Coronary angioplasty status; Z79.82 Long term (current) use of aspirin
CPT/HCPCS: 36415; 71045; 80053; 80061; 83880; 84439; 84443; 84484; 85025; 93005; 99285; Z7610

== ENCOUNTER → 2023-07-26 | Outpatient (CLI) | payer BC ==
[~2023-07-26] MED LIST changes: +NEBI5TAB2 PO; -NEBI5TAB3 PO
[2023-07-26 10:03] LABS: BASOPHILS % 1.1 % (0.0-2.0); EOSINOPHILS % 7.9 % (0.0-5.0); HEMATOCRIT. 40.4 % (36.0-48.0); HEMOGLOBIN. 13.3 g/dL (12.0-16.0); LYMPHOCYTES % 31.9 % (20.0-50.0); MEAN CORPUSCULAR HEMOGLOBIN 29.2 pg (28.0-32.0); MEAN CORPUSCULAR HGB CONC 32.9 g/dL (31.0-37.0); MEAN CORPUSCULAR VOLUME 88.7 fL (81.0-99.0); MEAN PLATELET VOLUME 8.5 fl (7.4-10.4); MONOCYTES % 5.9 % (2.0-8.0); NEUTROPHILS % 53.2 % (40.0-76.0); PLATELET 192 x1000/uL (130-400); RED BLOOD CELL COUNT 4.56 mill/uL (4.2-5.4); WHITE BLOOD COUNT 5.6 x1000/uL (4.5-11.0)
[2023-07-26 10:33] LABS: ALANINE AMINOTRANSFERASE 24 IU/L (10-49); ALBUMIN 3.9 g/dL (3.2-4.8); ASPARTATE AMINOTRANSFERASE 21 IU/L (<34); BILIRUBIN TOTAL 0.5 mg/dL (0.1-1.0); CALCIUM 8.9 mg/dL (8.7-10.4); CARBON DIOXIDE 31 mEq/L (21-32); CHLORIDE 106 mEq/L (98-107); CHOLESTEROL 170 mg/dL (<200); CREATININE 0.6 mg/dL (0.6-1.0); GLUCOSE 89 mg/dL (70-105); HDL CHOLESTEROL 59 mg/dL (>65); LDL CHOLESTEROL 89 mg/dL (5-100); POTASSIUM 3.8 mEq/L (3.5-5.1); PROTEIN TOTAL 7.2 g/dL (6.0-8.3); SODIUM 141 mEq/L (136-145); T4 FREE 1.16 ng/dL (0.89-1.76); THYROID STIMULATING HORMONE 1.54 uIU/mL (0.55-4.78); TRIGLYCERIDE 73 mg/dL (0-150); UREA NITROGEN BLOOD 18 mg/dL (9-23)
== END | disposition home or self-care (01) ==
LOC: LAB 09:36
PROVIDERS: ATTEND Specialist
DX: E78.2 Mixed hyperlipidemia (principal); E11.9 Type 2 diabetes mellitus without complications; E55.9 Vitamin D deficiency, unspecified; D64.9 Anemia, unspecified
CPT/HCPCS: 36415; 80053; 80061; 82306; 83036; 84439; 84443; 84480; 85025

== ENCOUNTER → 2023-11-13 | Outpatient (CLI) | payer BC ==
[2023-11-13 10:52] LABS: CLARITY URINE CLEAR (CLEAR); COLOR URINE YELLOW (YELLOW); PROTEIN URINE NEGATIVE (NEGATIVE); SPECIFIC GRAVITY URINE 1.026 (1.005-1.030)
[2023-11-13 10:53] LABS: GLUCOSE URINE NEGATIVE (NEGATIVE); KETONES URINE NEGATIVE (NEGATIVE); LEUKOCYTE ESTERASE URINE 1+ (NEGATIVE); NITRITE URINE NEGATIVE (NEGATIVE); OCCULT BLOOD URINE NEGATIVE (NEGATIVE); UROBILINOGEN URINE 0.2 E.U./dL (0.2-1.0)
[2023-11-13 11:02] LABS: ALANINE AMINOTRANSFERASE 25 IU/L (10-49); ASPARTATE AMINOTRANSFERASE 22 IU/L (<34); BILIRUBIN DIRECT 0.1 mg/dL (<=3.0); BILIRUBIN TOTAL 0.4 mg/dL (0.1-1.0)
[2023-11-13 11:13] LABS: BACTERIA URINE NONE SEEN; RBC URINE NONE SEEN /hpf (0-2); SQUAMOUS EPITHELIAL CELL URINE RARE /lpf (RARE/1+); WBC URINE 0-2 /hpf (0-2); YEAST URINE NONE SEEN
[2023-11-13 11:14] LABS: MUCUS URINE TRACE /lpf (< = 2+)
== END | disposition home or self-care (01) ==
LOC: LAB 09:15
PROVIDERS: ATTEND Internal Medicine
DX: I10 Essential (primary) hypertension (principal); E78.5 Hyperlipidemia, unspecified; N39.0 Urinary tract infection, site not specified; E55.9 Vitamin D deficiency, unspecified; E03.9 Hypothyroidism, unspecified; D64.9 Anemia, unspecified; R73.09 Other abnormal glucose
CPT/HCPCS: 36415; 80076; 81003; 84436; 85651

== ENCOUNTER → 2023-11-13 | Outpatient (CLI) | payer BC ==
[2023-11-13 10:08] LABS: BASOPHILS % 0.9 % (0.0-2.0); HEMATOCRIT. 41.3 % (36.0-48.0); HEMOGLOBIN. 13.9 g/dL (12.0-16.0); LYMPHOCYTES % 31.8 % (20.0-50.0); MEAN CORPUSCULAR HEMOGLOBIN 29.4 pg (28.0-32.0); MEAN CORPUSCULAR HGB CONC 33.7 g/dL (31.0-37.0); MEAN CORPUSCULAR VOLUME 87.2 fL (81.0-99.0); MEAN PLATELET VOLUME 8.4 fl (7.4-10.4); MONOCYTES % 6.7 % (2.0-8.0); NEUTROPHILS % 53.6 % (40.0-76.0); PLATELET 209 x1000/uL (130-400); RED BLOOD CELL COUNT 4.74 mill/uL (4.2-5.4); RED CELL DISTRIBUTION WIDTH 14.2 % (11.6-14.6); WHITE BLOOD COUNT 5.8 x1000/uL (4.5-11.0)
[2023-11-13 10:55] LABS: CARBON DIOXIDE 31 mEq/L (21-32); CHLORIDE 105 mEq/L (98-107); POTASSIUM 4.7 mEq/L (3.5-5.1); SODIUM 140 mEq/L (136-145)
[2023-11-13 10:56] LABS: CALCIUM 9.9 mg/dL (8.7-10.4)
[2023-11-13 11:01] LABS: CREATININE 0.7 mg/dL (0.6-1.0); GLUCOSE 68 mg/dL (70-105); TRIGLYCERIDE 82 mg/dL (0-150); UREA NITROGEN BLOOD 15 mg/dL (9-23)
[2023-11-13 11:02] LABS: ALANINE AMINOTRANSFERASE 23 IU/L (10-49); ASPARTATE AMINOTRANSFERASE 22 IU/L (<34); LDL CHOLESTEROL 151 mg/dL (5-100); T4 FREE 1.23 ng/dL (0.89-1.76)
[2023-11-13 11:03] LABS: BILIRUBIN TOTAL 0.4 mg/dL (0.1-1.0); CHOLESTEROL 202 mg/dL (<200); HDL CHOLESTEROL 58 mg/dL (>65); PROTEIN TOTAL 7.1 g/dL (6.0-8.3)
== END | disposition home or self-care (01) ==
LOC: LAB 09:27
PROVIDERS: ATTEND Specialist
DX: E11.9 Type 2 diabetes mellitus without complications (principal); E78.2 Mixed hyperlipidemia; D64.9 Anemia, unspecified; E55.9 Vitamin D deficiency, unspecified
CPT/HCPCS: 36415; 80053; 80061; 82306; 83036; 84439; 84443; 84480; 85025

== ENCOUNTER → 2024-01-16 | Outpatient (CLI) | payer BC | END | disposition home or self-care (01) | LOC: MAMMO 08:50 | PROVIDERS: ATTEND Obstetrics & Gynecology Obstetrics | DX: Z12.31 Encounter for screening mammogram for malignant neoplasm of breast (principal); R92.323 Mammographic fibroglandular density, bilateral breasts; R92.1 Mammographic calcification found on diagnostic imaging of breast | CPT/HCPCS: 77063; 77067 ==

== ENCOUNTER 2024-08-20 22:39 | Inpatient (IN) | payer BC ==
[~2024-08-20] VITALS: Ht 162.6 cm; Wt 61.2 kg
[~2024-08-20 22:39] MED LIST changes: +GUAI600T26 MT; -NEBI5TAB2 PO; +NEBI5TAB9 PO
[2024-08-20 23:32] LABS: BASOPHILS % 1.1 % (0.0-2.0); EOSINOPHILS % 8.1 % (0.0-5.0); HEMATOCRIT. 39.2 % (36.0-48.0); HEMOGLOBIN. 13.2 g/dL (12.0-16.0); MEAN CORPUSCULAR HEMOGLOBIN 29.6 pg (28.0-32.0); MEAN CORPUSCULAR HGB CONC 33.6 g/dL (31.0-37.0); MEAN CORPUSCULAR VOLUME 87.9 fL (81.0-99.0); MEAN PLATELET VOLUME 8.4 fl (7.4-10.4); MONOCYTES % 7.1 % (2.0-8.0); NEUTROPHILS % 50.7 % (40.0-76.0); PLATELET 180 x1000/uL (130-400); RED BLOOD CELL COUNT 4.46 mill/uL (4.2-5.4); RED CELL DISTRIBUTION WIDTH 14.4 % (11.6-14.6); WHITE BLOOD COUNT 6.5 x1000/uL (4.5-11.0)
[2024-08-20 23:36] LABS: CHLORIDE 106 mEq/L (98-107); POTASSIUM 3.8 mEq/L (3.5-5.1); SODIUM 140 mEq/L (136-145)
[2024-08-20 23:37] LABS: CARBON DIOXIDE 30 mEq/L (21-32)
[2024-08-20 23:42] LABS: CREATININE 0.6 mg/dL (0.6-1.0); GLUCOSE 100 mg/dL (70-105); UREA NITROGEN BLOOD 8 mg/dL (9-23)
[2024-08-20 23:51] LABS: TROPONIN I HIGH SENSITIVITY < 4 ng/L (3.0-34)
[2024-08-21 01:34] LABS: TROPONIN I HIGH SENSITIVITY < 4 ng/L (3.0-34)
[2024-08-21] MEDS ORDERED: MAGNESIUM/ALUMINUM HYDROXIDE/SIMETHICONE 30ML UDC PO PRN (06:45)
[2024-08-21] MEDS ORDERED: IPRATROPIUM/ALBUTEROL 0.5-3(2.5)MG/3ML NEB HHN PRN (06:45)
[2024-08-21] MEDS ORDERED: HYDROCODONE/ACETAMINOPHEN 5/325MG TABLET PO PRN (06:45)
[2024-08-21] MEDS ORDERED: POTASSIUM CHLORIDE 20MEQ TABLET SR PO PRN (06:45)
[2024-08-21] MEDS ORDERED: ACETAMINOPHEN 325MG TABLET PO PRN (06:45)
[2024-08-21] MEDS ORDERED: ONDANSETRON HCL 4MG/2ML INJ IV PRN (06:45)
[2024-08-21] MEDS ORDERED: CLONIDINE 0.1MG TABLET PO PRN (06:45)
[2024-08-21] MEDS ORDERED: DOCUSATE SODIUM 100MG CAPSULE PO PRN (06:45)
[2024-08-21] MEDS ORDERED: NALOXONE HCL 0.4MG/ML VIAL IV PRN (07:30)
[2024-08-21 07:45] LABS: CHLORIDE 108 mEq/L (98-107); POTASSIUM 4.2 mEq/L (3.5-5.1); SODIUM 143 mEq/L (136-145)
[2024-08-21 07:46] LABS: CALCIUM 8.9 mg/dL (8.7-10.4); CARBON DIOXIDE 29 mEq/L (21-32)
[2024-08-21 07:51] LABS: CREATININE 0.7 mg/dL (0.6-1.0); GLUCOSE 92 mg/dL (70-105); UREA NITROGEN BLOOD 9 mg/dL (9-23)
[2024-08-21 07:53] LABS: ALANINE AMINOTRANSFERASE 22 IU/L (10-49); ALBUMIN 3.7 g/dL (3.2-4.8); ASPARTATE AMINOTRANSFERASE 22 IU/L (<34); BILIRUBIN TOTAL 0.6 mg/dL (0.1-1.0); PROTEIN TOTAL 6.5 g/dL (6.0-8.3)
[2024-08-21 07:54] LABS: HEMATOCRIT 39.2 % (36.0-48.0); HEMOGLOBIN 12.8 g/dL (12.0-16.0); MEAN CORPUSCULAR HEMOGLOBIN 29.3 pg (28.0-32.0); MEAN CORPUSCULAR HGB CONC 32.7 g/dL (31.0-37.0); MEAN CORPUSCULAR VOLUME 89.4 fL (81.0-99.0); PLATELET 176 x1000/uL (130-400); RED BLOOD CELL COUNT 4.38 mill/uL (4.2-5.4); RED CELL DISTRIBUTION WIDTH 14.7 % (11.6-14.6); WHITE BLOOD COUNT 5.5 x1000/uL (4.5-11.0)
[2024-08-21 08:00] VITALS: BP 124/66; PULSE 61; RESP 18; TEMP 36.3; TEMP 36.5
[2024-08-21] MEDS: ENOXAPARIN 40MG/0.4ML SYR SUBCUT SCH (09:37)
[2024-08-21] MEDS ORDERED: ATOR-2 PO (10:05)
[2024-08-21] MEDS ORDERED: METO-539 PO (10:05)
[2024-08-21] MEDS ORDERED: AMLO5TAB5 PO (10:05)
[2024-08-21 11:53] VITALS: BP 114/59; PULSE 54; RESP 15; TEMP 37.2; O2SAT 99
[2024-08-21 16:00] VITALS: BP 125/69; PULSE 70; RESP 17; TEMP 36.2; O2SAT 99
[2024-08-21] MEDS ORDERED: REGADENOSON 0.4 MG/5 ML IV NR (17:15)
[2024-08-21 17:29] LABS: CLARITY URINE CLEAR (CLEAR); COLOR URINE YELLOW (YELLOW); GLUCOSE URINE NEGATIVE (NEGATIVE); KETONES URINE NEGATIVE (NEGATIVE); LEUKOCYTE ESTERASE URINE 1+ (NEGATIVE); NITRITE URINE NEGATIVE (NEGATIVE); OCCULT BLOOD URINE NEGATIVE (NEGATIVE); PH URINE 6.5 (4.5-8.0); PROTEIN URINE NEGATIVE (NEGATIVE); SPECIFIC GRAVITY URINE 1.005 (1.005-1.030); UROBILINOGEN URINE 0.2 E.U./dL (0.2-1.0)
[2024-08-21 17:53] LABS: BACTERIA URINE 1+; RBC URINE 0-2 /hpf (0-2); SQUAMOUS EPITHELIAL CELL URINE 1+ /lpf (RARE/1+)
[2024-08-21 17:59] LABS: *AMPHETAMINES SCREEN URINE NEGATIVE (NEGATIVE); *BARBITURATES SCREEN URINE NEGATIVE (NEGATIVE); *BENZODIAZEPINES SCREEN URINE NEGATIVE (NEGATIVE); *COCAINE SCREEN URINE NEGATIVE (NEGATIVE)
[2024-08-21 18:00] LABS: CANNABINOID URINE SCREEN NEGATIVE (NEGATIVE); ECSTASY MDMA SCREEN URINE NEGATIVE (NEGATIVE); METHADONE URINE SCREEN NEGATIVE (NEGATIVE); OPIATES URINE SCREEN NEGATIVE (NEGATIVE); PHENCYCLIDINE URINE SCREEN NEGATIVE (NEGATIVE)
[2024-08-21 20:00] VITALS: BP 112/70; PULSE 62; RESP 18; TEMP 36.2; O2SAT 100
[2024-08-21] MEDS: ATORVASTATIN CALCIUM 20MG TABLET PO SCH (22:27)
[2024-08-21] MEDS: AMLODIPINE 5MG TABLET PO SCH (22:27)
[2024-08-21] MEDS: METOPROLOL TARTRATE 25MG TABLET PO SCH (22:27)
[2024-08-22] VITALS: BP 109/63; PULSE 69; RESP 20; TEMP 36.2; O2SAT 98
[2024-08-22 04:00] VITALS: BP 99/61; PULSE 69; RESP 18; TEMP 35.7; O2SAT 97
[2024-08-22 07:42] LABS: BASOPHILS % 0.9 % (0.0-2.0); EOSINOPHILS % 12.7 % (0.0-5.0); HEMATOCRIT. 40.8 % (36.0-48.0); HEMOGLOBIN. 13.4 g/dL (12.0-16.0); LYMPHOCYTES % 34.6 % (20.0-50.0); MEAN CORPUSCULAR HEMOGLOBIN 28.4 pg (28.0-32.0); MEAN CORPUSCULAR HGB CONC 32.7 g/dL (31.0-37.0); MEAN CORPUSCULAR VOLUME 86.7 fL (81.0-99.0); MEAN PLATELET VOLUME 8.9 fl (7.4-10.4); MONOCYTES % 6.8 % (2.0-8.0); PLATELET 184 x1000/uL (130-400); RED BLOOD CELL COUNT 4.71 mill/uL (4.2-5.4); RED CELL DISTRIBUTION WIDTH 14.3 % (11.6-14.6); WHITE BLOOD COUNT 5.4 x1000/uL (4.5-11.0)
[2024-08-22 07:44] LABS: CHLORIDE 107 mEq/L (98-107); SODIUM 145 mEq/L (136-145)
[2024-08-22 07:45] LABS: CARBON DIOXIDE 28 mEq/L (21-32)
[2024-08-22 07:50] LABS: CREATININE 0.7 mg/dL (0.6-1.0); GLUCOSE 92 mg/dL (70-105); UREA NITROGEN BLOOD 11 mg/dL (9-23)
[2024-08-22 08:00] VITALS: BP 111/62; PULSE 78; RESP 18; TEMP 36.6; O2SAT 97
[2024-08-22] MEDS: ASPIRIN 81MG TABLET PO SCH (09:00)
[2024-08-22] MEDS ORDERED: REGADENOSON 0.4 MG/5 ML IV ONE (09:33)
[2024-08-22 16:00] VITALS: BP 115/68; PULSE 62; RESP 18; TEMP 36.6; O2SAT 97
[2024-08-22 20:00] VITALS: BP 120/71; PULSE 70; RESP 20; TEMP 36.2; O2SAT 100
[2024-08-22 21:00] VITALS: BP 120/71; PULSE 70; TEMP 97.2; O2SAT 100
== END 2024-08-22 21:40 | disposition home or self-care (01) | DRG 204 ==
LOC: ER 22:39 → 6WST 08-21 01:28 → EDBEDREQ 08-21 01:52 → EDBEDREQTM 08-21 01:52 → ER 08-21 08:21
PROVIDERS: ADMIT Family Medicine Adult Medicine; ATTEND Family Medicine Adult Medicine
DX: R06.02 Shortness of breath (principal); I10 Essential (primary) hypertension; R06.00 Dyspnea, unspecified; E78.5 Hyperlipidemia, unspecified; R07.89 Other chest pain; I25.10 Atherosclerotic heart disease of native coronary artery without angina pectoris; I25.2 Old myocardial infarction; Z83.438 Family history of other disorder of lipoprotein metabolism and other lipidemia; Z95.1 Presence of aortocoronary bypass graft; Z95.5 Presence of coronary angioplasty implant and graft
CPT/HCPCS: 36415; 71045; 78452; 80048; 80053; 80061; 80305; 81003; 83036; 83880; 84484; 85025; 85027; 93005; 93017; 93970; 99285; A9500; J1650; J2785

== ENCOUNTER 2025-01-09 15:31 | Inpatient (IN) | payer BC, OTHER ==
[~2025-01-09] VITALS: Ht 162.6 cm; Wt 76.3 kg
[~2025-01-09 15:31] MED LIST changes: +AMLO5TAB5 PO; +ATOR-2 PO; +METO-539 PO
[2025-01-09 16:24] LABS: BASOPHILS % 0.9 % (0.0-2.0); EOSINOPHILS % 7.3 % (0.0-5.0); HEMATOCRIT. 37.7 % (36.0-48.0); HEMOGLOBIN. 12.4 g/dL (12.0-16.0); LYMPHOCYTES % 32.3 % (20.0-50.0); MEAN PLATELET VOLUME 8.4 fl (7.4-10.4); MONOCYTES % 6.9 % (2.0-8.0); NEUTROPHILS % 52.6 % (40.0-76.0); PLATELET 173 x1000/uL (130-400); RED BLOOD CELL COUNT 4.32 mill/uL (4.2-5.4); RED CELL DISTRIBUTION WIDTH 14.2 % (11.6-14.6)
[2025-01-09 16:31] LABS: CREATININE 0.7 mg/dL (0.6-1.0); UREA NITROGEN BLOOD 10 mg/dL (9-23)
[2025-01-09 16:32] LABS: TROPONIN I HIGH SENSITIVITY < 4 ng/L (3.0-34)
[2025-01-09] MEDS ORDERED: GUAIFENESIN 200MG/10ML SUGAR FREE UDC PO PRN (19:45)
[2025-01-09] MEDS ORDERED: IPRATROPIUM/ALBUTEROL 0.5-3(2.5)MG/3ML NEB HHN PRN (19:45)
[2025-01-09] MEDS ORDERED: CLONIDINE 0.1MG TABLET PO PRN (19:45)
[2025-01-09] MEDS ORDERED: ACETAMINOPHEN 325MG TABLET PO PRN (19:45)
[2025-01-09] MEDS ORDERED: ONDANSETRON HCL 4MG/2ML INJ IV PRN (19:45)
[2025-01-09] MEDS ORDERED: DOCUSATE SODIUM 100MG CAPSULE PO PRN (19:45)
[2025-01-09] MEDS ORDERED: ATORVASTATIN CALCIUM 40MG TABLET PO SCH (21:00)
[2025-01-09] MEDS: ATORVASTATIN CALCIUM 40MG TABLET PO SCH (21:04)
[2025-01-09] MEDS: PANTOPRAZOLE SODIUM 40 MG/VIAL IV SCH (21:04)
[2025-01-09 23:21] VITALS: BP 119/69; PULSE 61; RESP 18; TEMP 36.5848
[2025-01-10 08:00] VITALS: BP 114/73; PULSE 76; RESP 16; TEMP 36.5; O2SAT 97
[2025-01-10] MEDS: ISOSORBIDE MONONITRATE 30MG TABLET SR 24HR PO SCH (09:00)
[2025-01-10] MEDS: AMLODIPINE 5MG TABLET PO SCH (09:00)
[2025-01-10 09:20] LABS: CLARITY URINE CLEAR (CLEAR); COLOR URINE YELLOW (YELLOW); GLUCOSE URINE NEGATIVE (NEGATIVE); KETONES URINE NEGATIVE (NEGATIVE); LEUKOCYTE ESTERASE URINE 1+ (NEGATIVE); NITRITE URINE NEGATIVE (NEGATIVE); OCCULT BLOOD URINE NEGATIVE (NEGATIVE); PH URINE 6.0 (4.5-8.0); PROTEIN URINE NEGATIVE (NEGATIVE); SPECIFIC GRAVITY URINE 1.016 (1.005-1.030); UROBILINOGEN URINE 0.2 E.U./dL (0.2-1.0)
[2025-01-10 09:38] LABS: BASOPHILS % 1.1 % (0.0-2.0); EOSINOPHILS % 7.3 % (0.0-5.0); HEMATOCRIT. 43.7 % (36.0-48.0); HEMOGLOBIN. 14.5 g/dL (12.0-16.0); LYMPHOCYTES % 35.6 % (20.0-50.0); MEAN PLATELET VOLUME 9.1 fl (7.4-10.4); MONOCYTES % 5.6 % (2.0-8.0); NEUTROPHILS % 50.4 % (40.0-76.0); PLATELET 184 x1000/uL (130-400); RED BLOOD CELL COUNT 5.04 mill/uL (4.2-5.4); RED CELL DISTRIBUTION WIDTH 14.7 % (11.6-14.6)
[2025-01-10 10:07] LABS: *AMPHETAMINES SCREEN URINE NEGATIVE (NEGATIVE)
[2025-01-10 10:08] LABS: *BENZODIAZEPINES SCREEN URINE NEGATIVE (NEGATIVE)
[2025-01-10 10:09] LABS: *BARBITURATES SCREEN URINE NEGATIVE (NEGATIVE); *COCAINE SCREEN URINE NEGATIVE (NEGATIVE); CANNABINOID URINE SCREEN NEGATIVE (NEGATIVE); ECSTASY MDMA SCREEN URINE NEGATIVE (NEGATIVE); METHADONE URINE SCREEN NEGATIVE (NEGATIVE); OPIATES URINE SCREEN NEGATIVE (NEGATIVE); PHENCYCLIDINE URINE SCREEN NEGATIVE (NEGATIVE)
[2025-01-10 10:13] LABS: T4 FREE 1.34 ng/dL (0.89-1.76); TRIGLYCERIDE 58 mg/dL (0-150)
[2025-01-10 10:14] LABS: UREA NITROGEN BLOOD 13 mg/dL (9-23)
[2025-01-10 10:15] LABS: CREATININE 0.7 mg/dL (0.6-1.0)
[2025-01-10 10:16] LABS: LDL CHOLESTEROL 121 mg/dL (5-100)
[2025-01-10 10:17] LABS: ASPARTATE AMINOTRANSFERASE 29 IU/L (<34)
[2025-01-10 10:18] LABS: BILIRUBIN DIRECT 0.2 mg/dL (<=3.0); BILIRUBIN TOTAL 0.8 mg/dL (0.1-1.0); PROTEIN TOTAL 7.0 g/dL (6.0-8.3)
[2025-01-10 10:28] LABS: MUCUS URINE 3+ /lpf (< = 2+); SQUAMOUS EPITHELIAL CELL URINE 2+ /lpf (RARE/1+)
[2025-01-10 10:29] LABS: BACTERIA URINE NONE SEEN; RBC URINE 0-2 /hpf (0-2); WBC URINE 0-2 /hpf (0-2)
[2025-01-10] MEDS: ASPIRIN 81MG TABLET PO SCH (10:44)
[2025-01-10 12:00] VITALS: BP 127/75; PULSE 62; RESP 18; TEMP 36.6; O2SAT 99
[2025-01-10] MEDS ORDERED: METO-385 PO (14:51)
[2025-01-10 16:00] VITALS: BP 114/60; PULSE 64; RESP 18; TEMP 36.6; O2SAT 99
[2025-01-10 18:35] VITALS: BP 114/60; PULSE 64; TEMP 97.9; O2SAT 99
== END 2025-01-10 20:39 | disposition home or self-care (01) | DRG 204 ==
LOC: ER 15:31 → 6WST 18:37
PROVIDERS: ADMIT Hospitalist; ATTEND Hospitalist
DX: R06.03 Acute respiratory distress (principal); F41.9 Anxiety disorder, unspecified; Z95.5 Presence of coronary angioplasty implant and graft; I25.10 Atherosclerotic heart disease of native coronary artery without angina pectoris; I10 Essential (primary) hypertension; E78.00 Pure hypercholesterolemia, unspecified; R06.02 Shortness of breath; Z79.899 Other long term (current) drug therapy; Z79.82 Long term (current) use of aspirin; I25.2 Old myocardial infarction
CPT/HCPCS: 36415; 71045; 80048; 80061; 80076; 80305; 81003; 84439; 84443; 84484; 85025; 93005; 97165; 99285; J2470

== ENCOUNTER 2025-01-20 22:30 | Inpatient (IN) | payer BC, OTHER ==
[~2025-01-20] VITALS: Ht 162.6 cm; Wt 78.7 kg
[~2025-01-20 22:30] MED LIST changes: -LIP40 PO; +METO-385 PO; -METO-539 PO; -NEBI5TAB9 PO
[2025-01-20] MEDS: ASPIRIN 81MG TABLET PO ONE (23:49)
[2025-01-20] MEDS: ASPIRIN 325MG TABLET PO ONE (23:50)
[2025-01-21 00:30] LABS: BASOPHILS % 0.9 % (0.0-2.0); EOSINOPHILS % 9.6 % (0.0-5.0); HEMATOCRIT. 37.1 % (36.0-48.0); HEMOGLOBIN. 12.4 g/dL (12.0-16.0); LYMPHOCYTES % 28.9 % (20.0-50.0); MEAN PLATELET VOLUME 8.5 fl (7.4-10.4); MONOCYTES % 7.3 % (2.0-8.0); NEUTROPHILS % 53.3 % (40.0-76.0); PLATELET 173 x1000/uL (130-400); RED BLOOD CELL COUNT 4.30 mill/uL (4.2-5.4); RED CELL DISTRIBUTION WIDTH 14.4 % (11.6-14.6)
[2025-01-21 00:44] LABS: CREATININE 0.7 mg/dL (0.6-1.0); UREA NITROGEN BLOOD 10 mg/dL (9-23)
[2025-01-21 00:45] LABS: TROPONIN I HIGH SENSITIVITY < 4 ng/L (3.0-34)
[2025-01-21 00:46] LABS: ASPARTATE AMINOTRANSFERASE 18 IU/L (<34); BILIRUBIN DIRECT 0.1 mg/dL (<=3.0)
[2025-01-21 00:47] LABS: BILIRUBIN TOTAL 0.5 mg/dL (0.1-1.0); PROTEIN TOTAL 6.2 g/dL (6.0-8.3)
[2025-01-21 01:06] LABS: CLARITY URINE CLEAR (CLEAR); COLOR URINE YELLOW (YELLOW); GLUCOSE URINE NEGATIVE (NEGATIVE); KETONES URINE NEGATIVE (NEGATIVE); LEUKOCYTE ESTERASE URINE TRACE (NEGATIVE); NITRITE URINE NEGATIVE (NEGATIVE); OCCULT BLOOD URINE NEGATIVE (NEGATIVE); PH URINE 7.0 (4.5-8.0); PROTEIN URINE NEGATIVE (NEGATIVE); SPECIFIC GRAVITY URINE 1.003 (1.005-1.030); UROBILINOGEN URINE 0.2 E.U./dL (0.2-1.0)
[2025-01-21 01:26] LABS: BACTERIA URINE TRACE; RBC URINE NONE SEEN /hpf (0-2); SQUAMOUS EPITHELIAL CELL URINE FEW /lpf (RARE/1+)
[2025-01-21] MEDS ORDERED: AMLO5TAB88 PO (02:57)
[2025-01-21 03:05] VITALS: BP 109/64; PULSE 59; RESP 16; TEMP 35.6396
[2025-01-21] MEDS ORDERED: CLONIDINE 0.1MG TABLET PO PRN (03:30)
[2025-01-21] MEDS ORDERED: ACETAMINOPHEN 325MG TABLET PO PRN ×2 (03:30)
[2025-01-21] MEDS ORDERED: IPRATROPIUM/ALBUTEROL 0.5-3(2.5)MG/3ML NEB HHN PRN (03:30)
[2025-01-21] MEDS ORDERED: ONDANSETRON HCL 4MG/2ML INJ IV PRN (03:30)
[2025-01-21] MEDS: PANTOPRAZOLE 40MG DR TABLET PO SCH (06:54)
[2025-01-21 08:00] VITALS: BP 124/68; PULSE 64; RESP 17; TEMP 36.5; O2SAT 100
[2025-01-21 08:54] LABS: *AMPHETAMINES SCREEN URINE NEGATIVE (NEGATIVE); *BARBITURATES SCREEN URINE NEGATIVE (NEGATIVE); *BENZODIAZEPINES SCREEN URINE NEGATIVE (NEGATIVE); *COCAINE SCREEN URINE NEGATIVE (NEGATIVE)
[2025-01-21 08:55] LABS: CANNABINOID URINE SCREEN NEGATIVE (NEGATIVE); ECSTASY MDMA SCREEN URINE NEGATIVE (NEGATIVE); METHADONE URINE SCREEN NEGATIVE (NEGATIVE); OPIATES URINE SCREEN NEGATIVE (NEGATIVE); PHENCYCLIDINE URINE SCREEN NEGATIVE (NEGATIVE)
[2025-01-21] MEDS: ASPIRIN 81MG TABLET PO SCH (09:09)
[2025-01-21] MEDS: ISOSORBIDE MONONITRATE 30MG TABLET SR 24HR PO SCH (09:11)
[2025-01-21] MEDS: ENOXAPARIN 40MG/0.4ML SYR SUBCUT SCH (09:13)
[2025-01-21] MEDS: METOPROLOL SUCCINATE 50MG ER TABLET PO SCH (09:16)
[2025-01-21 12:00] VITALS: BP 99/60; PULSE 78; RESP 18; TEMP 36.4; O2SAT 100
[2025-01-21] MEDS: POLYETHYLENE GLYCOL 3350 (17GM) 1 DOSE PACK PO SCH (12:14)
[2025-01-21 16:00] VITALS: BP 104/57; PULSE 62; RESP 16; TEMP 36.3; O2SAT 97
[2025-01-21] MEDS: AMLODIPINE 5MG TABLET PO SCH (18:30)
[2025-01-21 20:00] VITALS: BP 118/63; PULSE 59; RESP 17; TEMP 36.3; O2SAT 99
[2025-01-22] VITALS: BP 92/48; PULSE 55; RESP 16; TEMP 36.1; O2SAT 96
[2025-01-22 04:00] VITALS: BP 100/53; PULSE 61; RESP 16; TEMP 36.3; O2SAT 95
[2025-01-22 05:04] LABS: CREATININE 0.8 mg/dL (0.6-1.0); TRIGLYCERIDE 80 mg/dL (0-150); TROPONIN I HIGH SENSITIVITY < 4 ng/L (3.0-34); UREA NITROGEN BLOOD 9 mg/dL (9-23)
[2025-01-22 05:05] LABS: LDL CHOLESTEROL 63 mg/dL (5-100)
[2025-01-22 05:08] LABS: T4 FREE 1.21 ng/dL (0.89-1.76)
[2025-01-22 05:29] LABS: BASOPHILS % 1.5 % (0.0-2.0); EOSINOPHILS % 10.0 % (0.0-5.0); HEMATOCRIT. 37.5 % (36.0-48.0); HEMOGLOBIN. 12.5 g/dL (12.0-16.0); LYMPHOCYTES % 39.2 % (20.0-50.0); MEAN PLATELET VOLUME 9.0 fl (7.4-10.4); MONOCYTES % 6.5 % (2.0-8.0); NEUTROPHILS % 42.8 % (40.0-76.0); PLATELET 163 x1000/uL (130-400); RED BLOOD CELL COUNT 4.26 mill/uL (4.2-5.4); RED CELL DISTRIBUTION WIDTH 14.5 % (11.6-14.6)
[2025-01-22 08:00] VITALS: BP 135/75; PULSE 71; RESP 18; TEMP 36.1; O2SAT 98
[2025-01-22] MEDS ORDERED: METOPROLOL TARTRATE 5MG/5ML VIAL IV PRN (09:00)
[2025-01-22] MEDS: NITROGLYCERIN SPRAY/4.9GM CAN TL ONE (10:30)
[2025-01-22 12:00] VITALS: BP 128/69; PULSE 57; RESP 18; TEMP 36.5; O2SAT 100
[2025-01-22 16:00] VITALS: BP 131/69; PULSE 56; RESP 18; TEMP 36.3; O2SAT 100
[2025-01-22] MEDS ORDERED: IOHEXOL-350 100 ML BOTTLE ONE (16:04)
[2025-01-22 17:52] LABS: PHOSPHORUS 3.9 mg/dL (2.5-4.9)
[2025-01-22 20:00] VITALS: BP 113/65; PULSE 61; RESP 18; TEMP 36.4; O2SAT 96
[2025-01-22] MEDS: FAMOTIDINE 20MG TABLET PO SCH (21:00)
[2025-01-23] VITALS: BP 106/64; PULSE 78; RESP 18; TEMP 36.2; O2SAT 96
[2025-01-23 04:00] VITALS: BP 118/70; PULSE 61; RESP 17; TEMP 36.3; O2SAT 95
[2025-01-23 05:36] LABS: BASOPHILS % 1.2 % (0.0-2.0); EOSINOPHILS % 10.0 % (0.0-5.0); HEMATOCRIT. 38.5 % (36.0-48.0); HEMOGLOBIN. 12.8 g/dL (12.0-16.0); LYMPHOCYTES % 39.3 % (20.0-50.0); MEAN PLATELET VOLUME 9.2 fl (7.4-10.4); MONOCYTES % 7.9 % (2.0-8.0); NEUTROPHILS % 41.6 % (40.0-76.0); PLATELET 182 x1000/uL (130-400); RED BLOOD CELL COUNT 4.47 mill/uL (4.2-5.4); RED CELL DISTRIBUTION WIDTH 14.3 % (11.6-14.6)
[2025-01-23 05:40] LABS: INR 1.0
[2025-01-23 06:00] LABS: CREATININE 0.8 mg/dL (0.6-1.0); UREA NITROGEN BLOOD 12 mg/dL (9-23)
[2025-01-23 08:00] VITALS: BP 116/69; PULSE 66; RESP 19; TEMP 35.9; O2SAT 100
[2025-01-23] MEDS ORDERED: MAGNESIUM HYDROXIDE 400MG/5ML 30ML UDC PO PRN (10:30)
[2025-01-23 12:00] VITALS: BP 117/89; PULSE 70; RESP 20; TEMP 35.7; O2SAT 98
[2025-01-23] MEDS ORDERED: IOHEXOL-350 100 ML BOTTLE ONE (14:31)
[2025-01-23 17:10] VITALS: BP 143/97; PULSE 64; TEMP 98; O2SAT 99
== END 2025-01-23 17:45 | disposition home or self-care (01) | DRG 204 ==
LOC: ER 22:30 → 5WST 01-21 01:30 → EDBEDREQ 01-21 01:32 → EDBEDREQTM 01-21 01:32 → EDBEDREQDT 01-21 01:32 → ENRESERV 01-21 01:36
PROVIDERS: ADMIT Internal Medicine; ATTEND Internal Medicine
DX: R06.03 Acute respiratory distress (principal); R07.89 Other chest pain; I25.10 Atherosclerotic heart disease of native coronary artery without angina pectoris; F41.9 Anxiety disorder, unspecified; F41.0 Panic disorder [episodic paroxysmal anxiety]; I10 Essential (primary) hypertension; E78.5 Hyperlipidemia, unspecified; K59.00 Constipation, unspecified; Z79.82 Long term (current) use of aspirin; Z79.899 Other long term (current) drug therapy; I25.2 Old myocardial infarction
CPT/HCPCS: 36415; 71045; 71275; 75571; 80048; 80061; 80076; 80305; 81003; 83735; 84100; 84439; 84443; 84484; 85025; 93005; 93306; 99285; A4606; J1650; J3490; Q9967

== ENCOUNTER 2025-05-01 18:12 | Inpatient (IN) | payer BC, OTHER ==
[~2025-05-01] VITALS: Ht 162.6 cm; Wt 67.1 kg
[~2025-05-01 18:12] MED LIST changes: -AMLO5TAB5 PO; +AMLO5TAB6 PO; -GUAI600T26 MT
[2025-05-01 18:18] VITALS: O2SAT 99
[2025-05-01] MEDS: SODIUM CHLORIDE 0.9% 1,000 ML IV ONE (19:10)
[2025-05-01 19:21] LABS: HEMATOCRIT. 41.0 % (36.0-48.0); HEMOGLOBIN. 13.4 g/dL (12.0-16.0); MEAN PLATELET VOLUME 8.8 fl (7.4-10.4); PLATELET 201 x1000/uL (130-400); RED BLOOD CELL COUNT 4.64 mill/uL (4.2-5.4); RED CELL DISTRIBUTION WIDTH 15.3 % (11.6-14.6)
[2025-05-01 19:33] LABS: INR 1.0
[2025-05-01 19:36] LABS: CREATININE 0.7 mg/dL (0.6-1.0); UREA NITROGEN BLOOD 11 mg/dL (9-23)
[2025-05-01 19:37] LABS: TROPONIN I HIGH SENSITIVITY < 4 ng/L (3.0-34)
[2025-05-01 19:38] LABS: ASPARTATE AMINOTRANSFERASE 24 IU/L (<34); BILIRUBIN DIRECT 0.1 mg/dL (<=3.0); BILIRUBIN TOTAL 0.5 mg/dL (0.1-1.0); EOSINOPHILS % MANUAL 4.0 % (0.0-5.0); LYMPHOCYTES % MANUAL 44.0 % (20.0-60.0); MONOCYTES % MANUAL 4.0 % (2.0-8.0); NEUTROPHILS % MANUAL 48.0 % (45.0-75.0); PLATELET ESTIMATE NORMAL; PROTEIN TOTAL 7.9 g/dL (6.0-8.3)
[2025-05-01] MEDS: MECLIZINE 25MG TABLET PO ONE (19:41)
[2025-05-01 21:24] LABS: CLARITY URINE CLEAR (CLEAR); COLOR URINE YELLOW (YELLOW); GLUCOSE URINE NEGATIVE (NEGATIVE); KETONES URINE NEGATIVE (NEGATIVE); LEUKOCYTE ESTERASE URINE TRACE (NEGATIVE); NITRITE URINE NEGATIVE (NEGATIVE); OCCULT BLOOD URINE NEGATIVE (NEGATIVE); PH URINE 8.0 (4.5-8.0); PROTEIN URINE NEGATIVE (NEGATIVE); SPECIFIC GRAVITY URINE 1.011 (1.005-1.030); UROBILINOGEN URINE 0.2 E.U./dL (0.2-1.0)
[2025-05-01] MEDS ORDERED: IPRATROPIUM/ALBUTEROL 0.5-3(2.5)MG/3ML NEB HHN PRN (21:45)
[2025-05-01] MEDS ORDERED: CLONIDINE 0.1MG TABLET PO PRN (21:45)
[2025-05-01] MEDS ORDERED: DOCUSATE SODIUM 100MG CAPSULE PO PRN (21:45)
[2025-05-01] MEDS ORDERED: ONDANSETRON HCL 4MG/2ML INJ IV PRN (21:45)
[2025-05-01] MEDS ORDERED: ACETAMINOPHEN 325MG TABLET PO PRN ×2 (21:45)
[2025-05-01 21:56] LABS: BACTERIA URINE NONE SEEN; RBC URINE NONE SEEN /hpf (0-2); WBC URINE 0-2 /hpf (0-2)
[2025-05-01 22:00] VITALS: BP 131/75; PULSE 67; RESP 18; TEMP 36.2512
[2025-05-01] MEDS: MECLIZINE 12.5MG TABLET PO PRN (22:38)
[2025-05-01] MEDS: ATORVASTATIN CALCIUM 40MG TABLET PO SCH (22:39)
[2025-05-01] MEDS: FAMOTIDINE 20MG TABLET PO SCH (22:40)
[2025-05-01] MEDS ORDERED: IOHEXOL-350 100 ML BOTTLE ONE (22:41)
[2025-05-02] VITALS: BP 100/58; PULSE 69; RESP 17; TEMP 36.4; O2SAT 98
[2025-05-02 04:00] VITALS: BP 109/63; PULSE 60; RESP 20; TEMP 36.5; O2SAT 94
[2025-05-02 07:24] LABS: *AMPHETAMINES SCREEN URINE NEGATIVE (NEGATIVE); *BARBITURATES SCREEN URINE NEGATIVE (NEGATIVE); *BENZODIAZEPINES SCREEN URINE NEGATIVE (NEGATIVE); *COCAINE SCREEN URINE NEGATIVE (NEGATIVE); CANNABINOID URINE SCREEN NEGATIVE (NEGATIVE); ECSTASY MDMA SCREEN URINE NEGATIVE (NEGATIVE); METHADONE URINE SCREEN NEGATIVE (NEGATIVE); OPIATES URINE SCREEN NEGATIVE (NEGATIVE); PHENCYCLIDINE URINE SCREEN NEGATIVE (NEGATIVE)
[2025-05-02 07:26] LABS: BASOPHILS % 1.8 % (0.0-2.0); EOSINOPHILS % 9.7 % (0.0-5.0); HEMATOCRIT. 38.5 % (36.0-48.0); HEMOGLOBIN. 12.8 g/dL (12.0-16.0); LYMPHOCYTES % 43.9 % (20.0-50.0); MEAN PLATELET VOLUME 8.4 fl (7.4-10.4); MONOCYTES % 8.3 % (2.0-8.0); NEUTROPHILS % 36.3 % (40.0-76.0); PLATELET 181 x1000/uL (130-400); RED BLOOD CELL COUNT 4.44 mill/uL (4.2-5.4); RED CELL DISTRIBUTION WIDTH 14.7 % (11.6-14.6)
[2025-05-02 07:38] LABS: CREATININE 0.6 mg/dL (0.6-1.0); TRIGLYCERIDE 66 mg/dL (0-150); UREA NITROGEN BLOOD 9 mg/dL (9-23)
[2025-05-02 07:39] LABS: LDL CHOLESTEROL 113 mg/dL (5-100)
[2025-05-02 07:41] LABS: PHOSPHORUS 3.8 mg/dL (2.5-4.9)
[2025-05-02 07:42] LABS: T4 FREE 1.16 ng/dL (0.89-1.76)
[2025-05-02 08:00] VITALS: BP_SYST 125; BP_SYST 128; BP_SYST 130; BP_DIAS 71; BP_DIAS 72; BP_DIAS 77; PULSE 67; RESP 18; TEMP 36.4; O2SAT 95
[2025-05-02] MEDS: ASPIRIN 81MG TABLET PO SCH (10:07)
[2025-05-02] MEDS: METOPROLOL SUCCINATE 50MG ER TABLET PO SCH (10:08)
[2025-05-02] MEDS: AMLODIPINE 5MG TABLET PO SCH (10:08)
[2025-05-02 12:00] VITALS: BP 107/70; PULSE 70; RESP 19; TEMP 36.7; O2SAT 96
[2025-05-02 16:00] VITALS: BP 97/63; PULSE 80; RESP 20; TEMP 36.4; O2SAT 97
[2025-05-02 18:51] VITALS: BP 97/69; PULSE 69; RESP 20; TEMP 97.6
[2025-05-02] MEDS ORDERED: ATORVASTATIN CALCIUM 40MG TABLET PO SCH (21:00)
[2025-05-02] MEDS ORDERED: FAMOTIDINE 20MG TABLET PO SCH (21:00)
== END 2025-05-02 19:40 | disposition home or self-care (01) | DRG 641 ==
LOC: ER 18:12 → 8WST 21:02 → EDBEDREQSVC 21:05 → EDBEDREQTM 21:05 → EDBEDREQ 21:05 → ENRESERV 21:26
PROVIDERS: ADMIT Internal Medicine; ATTEND Internal Medicine
DX: E86.0 Dehydration (principal); E78.5 Hyperlipidemia, unspecified; I10 Essential (primary) hypertension; I25.10 Atherosclerotic heart disease of native coronary artery without angina pectoris; Z79.82 Long term (current) use of aspirin; Z79.899 Other long term (current) drug therapy
CPT/HCPCS: 36415; 70496; 70498; 71045; 80048; 80061; 80076; 80305; 81003; 82962; 83735; 83880; 84100; 84439; 84443; 84484; 85025; 93005; 99285; J7030; J8597; Q9967

== ENCOUNTER → 2025-06-16 | Outpatient (CLI) | payer BC, OTHER ==
[2025-06-16 09:28] LABS: BASOPHILS % 1.6 % (0.0-2.0); EOSINOPHILS % 10.3 % (0.0-5.0); HEMATOCRIT. 39.4 % (36.0-48.0); HEMOGLOBIN. 12.9 g/dL (12.0-16.0); LYMPHOCYTES % 37.0 % (20.0-50.0); MEAN PLATELET VOLUME 8.5 fl (7.4-10.4); MONOCYTES % 7.0 % (2.0-8.0); NEUTROPHILS % 44.1 % (40.0-76.0); PLATELET 188 x1000/uL (130-400); RED BLOOD CELL COUNT 4.48 mill/uL (4.2-5.4); RED CELL DISTRIBUTION WIDTH 14.8 % (11.6-14.6)
[2025-06-16 09:40] LABS: CREATININE 0.7 mg/dL (0.6-1.0); TRIGLYCERIDE 66 mg/dL (0-150); UREA NITROGEN BLOOD 10 mg/dL (9-23)
[2025-06-16 09:41] LABS: LDL CHOLESTEROL 135 mg/dL (5-100); PROTEIN TOTAL 6.7 g/dL (6.0-8.3)
[2025-06-16 09:42] LABS: ASPARTATE AMINOTRANSFERASE 23 IU/L (<34); BILIRUBIN TOTAL 0.7 mg/dL (0.1-1.0)
== END | disposition home or self-care (01) ==
LOC: LAB 08:26
PROVIDERS: ATTEND Specialist
DX: E11.9 Type 2 diabetes mellitus without complications (principal); E78.2 Mixed hyperlipidemia; E55.9 Vitamin D deficiency, unspecified; D64.9 Anemia, unspecified
CPT/HCPCS: 36415; 80053; 80061; 82306; 83036; 84443; 85025